=== PATIENT | female | born 1935 | race Caucasian/White ===

== ENCOUNTER → 2020-12-06 08:56 | Outpatient (CLI) | payer MEDICARE | END | disposition home or self-care (01) | LOC: D.HCCECHO 08:56 | PROVIDERS: ATTEND Internal Medicine Cardiovascular Disease | DX: R09.89 Other specified symptoms and signs involving the circulatory and respiratory systems (principal); G45.9 Transient cerebral ischemic attack, unspecified; I35.0 Nonrheumatic aortic (valve) stenosis ==

== ENCOUNTER → 2020-12-17 10:22 | Outpatient (CLI) | payer MEDICARE | END | disposition home or self-care (01) | LOC: D.CT 10:22 | DX: I65.23 Occlusion and stenosis of bilateral carotid arteries (principal) ==